=== PATIENT | male | born 1960 | race Caucasian/White ===

== ENCOUNTER 2020-05-10 20:34 | Inpatient (IN) | payer MEDICAID ==
[~2020-05-10] VITALS: Ht 177.8 cm; Wt 78.0 kg
[~2020-05-10 20:34] MED LIST: BENA5TAB26 PO; DIVA-80 PO; METF-960 PO; OLAN5TAB40 PO; PANT-31 PO; PROZ10 PO; SIMV-261 PO; TRIH5TAB4 PO
[2020-05-10 21:50] LABS: BASOPHILS % (AUTO) 0.2 % (0.0-2.0); EOSINOPHILS % (AUTO) 0.1 % (1.0-6.0); HEMOGLOBIN 11.5 g/dL (13.5-17.5); LYMPHOCYTES # (AUTO) 1.6 K/uL (1.0-4.8); MEAN CORPUSCULAR HEMOGLOBIN 29.2 pg (26.0-34.0); MEAN CORPUSCULAR HGB CONC 32.8 G/dL (31.0-37.0); MEAN CORPUSCULAR VOLUME 89 fL (80-100); MONOCYTES # (AUTO) 0.9 K/uL (0.1-1.0); MONOCYTES % (AUTO) 7.1 % (2.0-9.0); NEUTROPHILS # (AUTO) 10.9 K/uL (1.8-7.7); NEUTROPHILS % (AUTO) 80.6 % (40.0-70.0); PLATELET COUNT (AUTO) 153 K/uL (150-450); RED BLOOD CELL COUNT(AUTO) 3.93 MIL/uL (4.50-5.90); RED CELL DISTRIBUTION WIDTH 14.4 % (11.5-14.5)
[2020-05-10 22:02] LABS: ANION GAP 14 mmol/L (8-16); CALCIUM, TOTAL 9.4 mg/dL (8.8-10.5); CARBON DIOXIDE 24 mmol/L (22-29); CHLORIDE 101 mmol/L (98-107); CREATININE 1.78 mg/dL (0.60-1.30); GLOMERULAR FILTR. RATE CALC 33 mL/min (>60); GLUCOSE,RANDOM 108 mg/dL (70-110); POTASSIUM 4.7 mmol/L (3.5-5.1); SODIUM SERUM 139 mmol/L (136-145); UREA NITROGEN, BLOOD 30 mg/dL (7-18)
[2020-05-10 22:08] LABS: ALANINE AMINOTRANSFERASE 22 U/L (12-78); ALBUMIN 4.2 g/dL (3.4-5.0); ALKALINE PHOSPHATASE 45 U/L (46-116); ASPARTATE AMINOTRANSFERASE 18 U/L (15-37); BILIRUBIN,TOTAL 0.5 mg/dL (0.1-1.0); TOTAL PROTEIN, SERUM 7.5 g/dL (6.4-8.2)
[2020-05-10 22:40] LABS: COVID AG,FIA SOURCE NASOPHARYNGEAL
[2020-05-10] MEDS ORDERED: DiphenhydrAMINE HCL 50 MG/ML VIAL IM ONE (23:00)
[2020-05-10] MEDS ORDERED: HALOPERIDOL LACTATE 5 MG/ML VIAL IM ONE (23:00)
[2020-05-10] MEDS ORDERED: LORazepam 2 MG/ML VIAL IM ONE (23:00)
[2020-05-10] MEDS ORDERED: ZOLPIDEM TARTRATE 10 MG TABLET PO PRN (23:15)
[2020-05-11] MEDS: QUEtiapine FUMARATE 100 MG TABLET PO PRN (08:20)
[2020-05-11] MEDS: LORazepam 2 MG TABLET PO PRN (08:20)
[2020-05-11 10:01] VITALS: BP 117/59
[2020-05-11] MEDS: RisperiDONE 2 MG TABLET PO SCH ×2 (10:45→16:51)
[2020-05-11 16:07] LABS: APPEARANCE,URINE CLEAR (CLEAR); BILIRUBIN,URINE NEGATIVE (NEGATIVE); GLUCOSE, URINE (UA) NEGATIVE (NEGATIVE); KETONES,URINE NEGATIVE (NEGATIVE); LEUKOCYTE ESTERASE ,URINE NEGATIVE (NEGATIVE); NITRATE,URINE NEGATIVE (NEGATIVE); OCCULT BLOOD,URINE NEGATIVE (NEGATIVE); PH,URINE 5.5 (5.0-8.0); PROTEIN,URINE NEGATIVE (NEGATIVE); UROBILINOGEN,URINE 0.2 mg/dL (<=1.0)
[2020-05-11 16:11] LABS: AMPHET/METH SCREEN,URINE NEGATIVE (NEGATIVE); BARBITURATE SCREEN, URINE NEGATIVE (NEGATIVE); BENZODIAZEPINES SCREEN,URINE NEGATIVE (NEGATIVE); CANNABINOID SCREEN,URINE NEGATIVE (NEGATIVE); COCAINE SCREEN,URINE NEGATIVE (NEGATIVE); METHADONE SCREEN, URINE NEGATIVE (NEGATIVE); OPIATE SCREEN,URINE NEGATIVE (NEGATIVE); PHENCYCLIDINE SCREEN,URINE NEGATIVE (NEGATIVE)
[2020-05-11 16:51] VITALS: BP 116/76
[2020-05-12] MEDS: LORazepam 2 MG TABLET PO PRN ×2 (02:04→08:26)
[2020-05-12] MEDS: RisperiDONE 2 MG TABLET PO SCH ×2 (08:26→16:51)
[2020-05-12] MEDS: QUEtiapine FUMARATE 100 MG TABLET PO PRN (08:27)
[2020-05-12 08:42] VITALS: BP 116/63
[2020-05-12] MEDS ORDERED: ALBUTEROL SULFATE HFA 90 MCG/PUFF 8 GM INHALER IH PRN (17:45)
[2020-05-12] MEDS ORDERED: NICOTINE 14 MG/24 HOUR PATCH TD PRN (17:45)
[2020-05-12] MEDS ORDERED: CloNIDine HCL 0.1 MG TABLET PO PRN (17:45)
[2020-05-12] MEDS ORDERED: LOPERAMIDE HCL 2 MG CAPSULE PO PRN (17:45)
[2020-05-12] MEDS ORDERED: GuaiFENesin/D-METHORPHAN [SUGAR-FREE] 200-20MG/10 ML SYRUP UDCUP PO PRN (17:45)
[2020-05-12] MEDS ORDERED: IBUPROFEN 400 MG TABLET PO PRN (17:45)
[2020-05-12] MEDS ORDERED: MAGNESIUM HYDROXIDE SUSPENSION 30 ML UDCUP PO PRN (17:45)
[2020-05-12] MEDS ORDERED: DOCUSATE SODIUM 100 MG CAPSULE PO PRN (17:45)
[2020-05-12] MEDS ORDERED: ACETAMINOPHEN 325 MG TABLET PO PRN (17:45)
[2020-05-12] MEDS ORDERED: PETROLATUM,WHITE 28 GM JELLY TP PRN (17:45)
[2020-05-12] MEDS ORDERED: ONDANSETRON HCL 4 MG TABLET PO PRN (17:45)
[2020-05-12] MEDS ORDERED: MAG HYDROX/AL HYDROX/SIMETH ES 30 ML SUSPENSION UDCUP PO PRN (17:45)
[2020-05-13 08:00] VITALS: BP 112/63
[2020-05-13] MEDS: LORazepam 2 MG TABLET PO PRN ×3 (08:17→20:08)
[2020-05-13] MEDS: RisperiDONE 2 MG TABLET PO SCH ×2 (08:17→15:53)
[2020-05-13] MEDS: QUEtiapine FUMARATE 100 MG TABLET PO PRN (08:17)
[2020-05-13 16:42] VITALS: BP 110/65
[2020-05-14] MEDS: RisperiDONE 2 MG TABLET PO SCH ×2 (08:12→16:20)
[2020-05-14] MEDS: LORazepam 2 MG TABLET PO PRN (08:12)
[2020-05-14] MEDS: QUEtiapine FUMARATE 100 MG TABLET PO PRN (08:12)
[2020-05-14 08:17] VITALS: BP 107/59
[2020-05-14 16:36] VITALS: BP 102/61
[2020-05-15 08:00] VITALS: BP 104/62
[2020-05-15] MEDS: RisperiDONE 2 MG TABLET PO SCH ×2 (08:47→15:53)
[2020-05-15] MEDS: LORazepam 2 MG TABLET PO PRN ×2 (08:47→15:53)
[2020-05-15 16:00] VITALS: BP 99/58
[2020-05-15] MEDS: QUEtiapine FUMARATE 100 MG TABLET PO PRN (17:55)
[2020-05-16 05:54] LABS: BASOPHILS % (AUTO) 1.2 % (0.0-2.0); EOSINOPHILS % (AUTO) 0.2 % (1.0-6.0); HEMATOCRIT 32.1 % (41-53); HEMOGLOBIN 11.3 g/dL (13.5-17.5); LYMPHOCYTES # (AUTO) 1.6 K/uL (1.0-4.8); LYMPHOCYTES % (AUTO) 21.3 % (22.0-44.0); MEAN CORPUSCULAR HEMOGLOBIN 29.4 pg (26.0-34.0); MEAN CORPUSCULAR HGB CONC 35.2 G/dL (31.0-37.0); MEAN CORPUSCULAR VOLUME 84 fL (80-100); MONOCYTES # (AUTO) 0.7 K/uL (0.1-1.0); MONOCYTES % (AUTO) 9.6 % (2.0-9.0); NEUTROPHILS # (AUTO) 4.9 K/uL (1.8-7.7); NEUTROPHILS % (AUTO) 67.7 % (40.0-70.0); PLATELET COUNT (AUTO) 235 K/uL (150-450); RED BLOOD CELL COUNT(AUTO) 3.84 MIL/uL (4.50-5.90)
[2020-05-16 06:06] LABS: ANION GAP 8 mmol/L (8-16); CALCIUM, TOTAL 8.4 mg/dL (8.8-10.5); CARBON DIOXIDE 27 mmol/L (22-29); CHLORIDE 102 mmol/L (98-107); CREATININE 0.77 mg/dL (0.60-1.30); GLOMERULAR FILTR. RATE CALC > 60 mL/min (>60); GLUCOSE,RANDOM 206 mg/dL (70-110); POTASSIUM 4.8 mmol/L (3.5-5.1); SODIUM SERUM 137 mmol/L (136-145); UREA NITROGEN, BLOOD 19 mg/dL (7-18)
[2020-05-16 08:00] VITALS: BP 107/60
[2020-05-16] MEDS: RisperiDONE 2 MG TABLET PO SCH (08:52)
[2020-05-16] MEDS: LORazepam 2 MG TABLET PO PRN (08:52)
[2020-05-16 10:53] LABS: COVID AG,FIA SOURCE NASOPHARYNGEAL
[2020-05-16 16:12] VITALS: BP 132/81
[2020-05-16] MEDS: RisperiDONE 3 MG TABLET PO SCH (21:03)
[2020-05-17 00:03] VITALS: BP 126/86
[2020-05-17 08:00] VITALS: BP 115/74
[2020-05-17] MEDS: RisperiDONE 3 MG TABLET PO SCH ×2 (08:14→20:09)
[2020-05-17] MEDS: LORazepam 2 MG TABLET PO PRN ×2 (15:45→20:09)
[2020-05-17 16:22] VITALS: BP 118/65
[2020-05-18 00:05] VITALS: BP 119/77
[2020-05-18 08:34] VITALS: BP 128/75
[2020-05-18] MEDS: RisperiDONE 3 MG TABLET PO SCH ×2 (10:47→20:32)
[2020-05-18] MEDS: LORazepam 2 MG TABLET PO PRN ×2 (15:55→20:32)
[2020-05-18 16:00] VITALS: BP 112/58
[2020-05-19] MEDS: LORazepam 2 MG TABLET PO PRN (08:24)
[2020-05-19] MEDS: RisperiDONE 3 MG TABLET PO SCH ×2 (08:24→20:55)
[2020-05-19 08:49] VITALS: BP 97/61
[2020-05-19 16:08] VITALS: BP 107/71
[2020-05-20 08:00] VITALS: BP 113/59
[2020-05-20] MEDS: RisperiDONE 3 MG TABLET PO SCH ×2 (09:07→20:07)
[2020-05-20] MEDS: LORazepam 2 MG TABLET PO PRN (16:43)
[2020-05-20 16:47] VITALS: BP 118/61
[2020-05-21] MEDS: RisperiDONE 3 MG TABLET PO SCH ×2 (07:57→20:22)
[2020-05-21] MEDS: QUEtiapine FUMARATE 100 MG TABLET PO PRN (10:03)
[2020-05-21] MEDS: LORazepam 2 MG TABLET PO PRN ×2 (10:03→16:11)
[2020-05-21 16:17] VITALS: BP 118/60
[2020-05-22] MEDS: RisperiDONE 3 MG TABLET PO SCH ×2 (09:32→20:27)
[2020-05-22] MEDS: LORazepam 2 MG TABLET PO PRN (15:50)
[2020-05-22 16:49] VITALS: BP 119/67
[2020-05-23 08:00] VITALS: BP 143/71
[2020-05-23] MEDS: RisperiDONE 3 MG TABLET PO SCH ×2 (08:26→20:30)
[2020-05-23] MEDS: LORazepam 2 MG TABLET PO PRN (13:33)
[2020-05-23] MEDS: QUEtiapine FUMARATE 100 MG TABLET PO PRN (13:34)
[2020-05-23 21:50] VITALS: BP 108/62
[2020-05-24 08:00] VITALS: BP 107/51
[2020-05-24] MEDS: LORazepam 2 MG TABLET PO PRN (08:29)
[2020-05-24] MEDS: RisperiDONE 3 MG TABLET PO SCH ×2 (08:29→20:20)
[2020-05-24 12:48] LABS: COVID AG,FIA SOURCE NASOPHARYNGEAL
[2020-05-24 18:40] VITALS: BP 107/61
[2020-05-25 08:00] VITALS: BP 111/57
[2020-05-25] MEDS: RisperiDONE 3 MG TABLET PO SCH ×2 (08:02→20:52)
[2020-05-25] MEDS: LORazepam 2 MG TABLET PO PRN (08:02)
[2020-05-25 16:23] VITALS: BP 118/65
[2020-05-26 06:01] VITALS: BP 115/69
[2020-05-26] MEDS: RisperiDONE 3 MG TABLET PO SCH ×2 (08:39→20:15)
[2020-05-26] MEDS: VALPROIC ACID 250 MG CAPSULE PO SCH (20:15)
[2020-05-27] MEDS: VALPROIC ACID 250 MG CAPSULE PO SCH ×2 (08:11→20:05)
[2020-05-27] MEDS: RisperiDONE 3 MG TABLET PO SCH ×2 (08:11→20:05)
[2020-05-27 08:44] VITALS: BP 138/68
[2020-05-28] MEDS: VALPROIC ACID 250 MG CAPSULE PO SCH ×2 (08:16→20:10)
[2020-05-28] MEDS: RisperiDONE 3 MG TABLET PO SCH ×2 (08:16→20:09)
[2020-05-28 08:45] VITALS: BP 135/74
[2020-05-28] MEDS ORDERED: PALIPERIDONE PALMITATE 234 MG/1.5 ML SYRINGE IM ONE (11:00)
[2020-05-28 16:43] VITALS: BP 116/62
[2020-05-29 05:55] VITALS: BP 108/62
[2020-05-29 08:00] VITALS: BP 122/60
[2020-05-29] MEDS: VALPROIC ACID 250 MG CAPSULE PO SCH ×2 (08:10→21:08)
[2020-05-29] MEDS: RisperiDONE 3 MG TABLET PO SCH ×2 (08:10→21:08)
[2020-05-29 16:34] VITALS: BP 109/60
[2020-05-30] MEDS: VALPROIC ACID 250 MG CAPSULE PO SCH ×2 (08:42→20:23)
[2020-05-30] MEDS: RisperiDONE 3 MG TABLET PO SCH ×2 (08:42→20:23)
[2020-05-30 09:34] VITALS: BP 110/73
[2020-05-30 16:00] VITALS: BP 114/64
[2020-05-31 04:48] VITALS: BP 117/53
[2020-05-31] MEDS: VALPROIC ACID 250 MG CAPSULE PO SCH ×2 (07:59→21:09)
[2020-05-31] MEDS: RisperiDONE 3 MG TABLET PO SCH ×2 (08:01→21:09)
[2020-05-31 08:44] VITALS: BP 115/56
[2020-05-31 12:45] LABS: COVID AG,FIA SOURCE NASOPHARYNGEAL
[2020-05-31 17:00] VITALS: BP 132/67
[2020-06-01 08:00] VITALS: BP 120/73
[2020-06-01] MEDS: VALPROIC ACID 250 MG CAPSULE PO SCH ×2 (08:55→20:29)
[2020-06-01] MEDS: RisperiDONE 3 MG TABLET PO SCH ×2 (08:55→20:29)
[2020-06-01] MEDS ORDERED: PALIPERIDONE PALMITATE 156 MG/ML SYRINGE IM ONE (09:00)
[2020-06-01 16:00] VITALS: BP 123/72
[2020-06-02] MEDS: RisperiDONE 3 MG TABLET PO SCH (08:31)
[2020-06-02] MEDS: VALPROIC ACID 250 MG CAPSULE PO SCH (08:31)
[2020-06-02] MEDS ORDERED: PALI234D IM (10:23)
[2020-06-02] MEDS ORDERED: VALP250C48 PO (10:23)
[2020-06-02] MEDS ORDERED: RISP3TAB44 PO (10:23)
== END 2020-06-02 12:15 | disposition home or self-care (01) | DRG 750 ==
LOC: EMS 20:37 → EDBD 05-11 00:13 → 3EC 05-11 00:13 → 3EI 05-25 15:30
DX: F20.0 Paranoid schizophrenia (principal); D72.829 Elevated white blood cell count, unspecified; D64.9 Anemia, unspecified; Z20.822 Contact with and (suspected) exposure to COVID-19; F94.0 Selective mutism; N17.9 Acute kidney failure, unspecified; Z59.0 Homelessness; Z79.899 Other long term (current) drug therapy
CPT/HCPCS: 80307; 83036; 87426; 93005; 99291; G0480; J1200; J1630; J2060

== ENCOUNTER 2021-12-24 18:30 | Inpatient (IN) | payer MEDICAID, OTHER ==
[~2021-12-24] VITALS: Ht 175.3 cm; Wt 82.2 kg
[~2021-12-24 18:30] MED LIST changes: +FLUO10CA24 PO; +METF-1211 PO; -METF-960 PO; -OLAN5TAB40 PO; +OLAN5TAB94 PO; +PALI234D IM; -PROZ10 PO; +RISP3TAB44 PO; +VALP250C48 PO
[2021-12-24 23:08] LABS: BASOPHILS % (AUTO) 0.5 % (0.0-2.0); EOSINOPHILS % (AUTO) 0.4 % (1.0-6.0); HEMATOCRIT 37.2 % (41-53); HEMOGLOBIN 12.3 g/dL (13.5-17.5); LYMPHOCYTES # (AUTO) 2.5 K/uL (1.0-4.8); LYMPHOCYTES % (AUTO) 25.1 % (22.0-44.0); MEAN CORPUSCULAR HGB CONC 33.2 G/dL (31.0-37.0); MEAN CORPUSCULAR VOLUME 88 fL (80-100); NEUTROPHILS # (AUTO) 6.5 K/uL (1.8-7.7); PLATELET COUNT (AUTO) 355 K/uL (150-450); RED BLOOD CELL COUNT(AUTO) 4.25 MIL/uL (4.50-5.90); RED CELL DISTRIBUTION WIDTH 14.3 % (11.5-14.5)
[2021-12-24 23:17] LABS: ANION GAP 8 mmol/L (8-16); CALCIUM, TOTAL 9.2 mg/dL (8.8-10.5); CARBON DIOXIDE 30 mmol/L (22-29); CHLORIDE 98 mmol/L (98-107); CREATININE 0.89 mg/dL (0.60-1.30); GLUCOSE,RANDOM 173 mg/dL (70-110); SODIUM SERUM 136 mmol/L (136-145); UREA NITROGEN, BLOOD 17 mg/dL (7-18)
[2021-12-24 23:19] LABS: GLOMERULAR FILTR. RATE CALC > 60 mL/min (>60)
[2021-12-24 23:24] LABS: ALANINE AMINOTRANSFERASE 31 U/L (12-78); ALBUMIN 3.9 g/dL (3.4-5.0); ASPARTATE AMINOTRANSFERASE 27 U/L (15-37); BILIRUBIN,TOTAL 0.9 mg/dL (0.1-1.0); TOTAL PROTEIN, SERUM 7.4 g/dL (6.4-8.2)
[2021-12-24 23:35] LABS: ALKALINE PHOSPHATASE 61 U/L (46-116)
[2021-12-24 23:45] LABS: VALPROIC ACID < 3 mcg/mL (50-100)
[2021-12-25] MEDS ORDERED: MIDAZOLAM HCL 5 MG/ML VIAL IM ONE (01:00)
[2021-12-25] MEDS ORDERED: HALOPERIDOL LACTATE 5 MG/ML VIAL IM ONE (01:00)
[2021-12-25] MEDS ORDERED: DiphenhydrAMINE HCL 50 MG/ML VIAL IM ONE (01:00)
[2021-12-25 01:25] LABS: COVID AG,FIA SOURCE NASOPHARYNGEAL
[2021-12-25] MEDS ORDERED: ZOLPIDEM TARTRATE 10 MG TABLET PO PRN (01:45)
[2021-12-25 05:15] VITALS: BP 153/64
[2021-12-25] MEDS ORDERED: INFLUENZA VIRUS VACCINE QVS 2022-23 (6MO+)/PF 60 MCG/0.5 ML SYRINGE IM. ONE (06:45)
[2021-12-25] MEDS ORDERED: LOPERAMIDE HCL 2 MG CAPSULE PO PRN (13:30)
[2021-12-25] MEDS ORDERED: PETROLATUM,WHITE 28 GM JELLY TP PRN (13:30)
[2021-12-25] MEDS ORDERED: GLUCAGON,HUMAN RECOMBINANT 1 MG VIAL IM PRN (13:30)
[2021-12-25] MEDS ORDERED: DOCUSATE SODIUM 100 MG CAPSULE PO PRN (13:30)
[2021-12-25] MEDS ORDERED: IBUPROFEN 600 MG TABLET PO PRN (13:30)
[2021-12-25] MEDS ORDERED: OMEPRAZOLE 20 MG CAPSULE PO PRN (13:30)
[2021-12-25] MEDS ORDERED: ALBUTEROL SULFATE HFA 90 MCG/PUFF 8 GM INHALER IH PRN (13:30)
[2021-12-25] MEDS ORDERED: MAGNESIUM HYDROXIDE SUSPENSION 30 ML UDCUP PO PRN (13:30)
[2021-12-25] MEDS: BENAZEPRIL HCL 5 MG TABLET PO SCH (13:30)
[2021-12-25] MEDS ORDERED: ACETAMINOPHEN 325 MG TABLET PO PRN (13:30)
[2021-12-25] MEDS ORDERED: CloNIDine HCL 0.1 MG TABLET PO PRN (13:30)
[2021-12-25] MEDS ORDERED: MAG HYDROX/AL HYDROX/SIMETH ES 30 ML SUSPENSION UDCUP PO PRN (13:30)
[2021-12-25] MEDS ORDERED: ONDANSETRON HCL 4 MG TABLET PO PRN (13:30)
[2021-12-25] MEDS ORDERED: BACITRACIN 28 GM OINTMENT TP PRN (13:30)
[2021-12-25] MEDS: HALOPERIDOL 5 MG TABLET PO PRN (17:26)
[2021-12-25] MEDS: MetFORMIN HCL 500 MG TABLET PO SCH (17:26)
[2021-12-25] MEDS: INSULIN LISPRO 100 UNITS/ML SQ PRN (17:31)
[2021-12-25 17:36] LABS: GLUCOMETER DEV NAME(LOC) BV3N.; GLUCOSE,POINT OF CARE 230 MG/DL (70-110)
[2021-12-25 22:12] VITALS: BP 156/71
[2021-12-25] MEDS: SIMVASTATIN 20 MG TABLET PO SCH (22:28)
[2021-12-26] MEDS: MetFORMIN HCL 500 MG TABLET PO SCH ×2 (06:30→16:30)
[2021-12-26 08:00] VITALS: BP 138/80
[2021-12-26] MEDS: HALOPERIDOL 5 MG TABLET PO PRN (08:51)
[2021-12-26] MEDS: LORazepam 2 MG TABLET PO PRN (08:51)
[2021-12-26] MEDS: BENAZEPRIL HCL 5 MG TABLET PO SCH (08:51)
[2021-12-26] MEDS ORDERED: HALOPERIDOL LACTATE 5 MG/ML VIAL IM ONE (17:00)
[2021-12-26] MEDS ORDERED: LORazepam 2 MG/ML VIAL IM ONE (17:00)
[2021-12-26] MEDS ORDERED: DiphenhydrAMINE HCL 50 MG/ML VIAL IM ONE (17:00)
[2021-12-26] MEDS: SIMVASTATIN 20 MG TABLET PO SCH (20:53)
[2021-12-27] MEDS: MetFORMIN HCL 500 MG TABLET PO SCH ×2 (06:14→16:30)
[2021-12-27 08:31] VITALS: BP 140/65
[2021-12-27] MEDS: BENAZEPRIL HCL 5 MG TABLET PO SCH (09:14)
[2021-12-27] MEDS: HALOPERIDOL 5 MG TABLET PO PRN (09:14)
[2021-12-27] MEDS: LORazepam 2 MG TABLET PO PRN (09:14)
[2021-12-27] MEDS: SIMVASTATIN 20 MG TABLET PO SCH (20:41)
[2021-12-28] MEDS: MetFORMIN HCL 500 MG TABLET PO SCH ×2 (06:15→16:01)
[2021-12-28 06:38] VITALS: BP 111/76
[2021-12-28 07:49] LABS: CHOL/HDL RATIO 4.3 (4.2-7.3); FREE T4 (FREE THYROXINE) 1.13 ng/dL (0.76-1.46); THYROID STIMULATING HORMONE 2.69 uIU/mL (0.36-3.74)
[2021-12-28] MEDS: BENAZEPRIL HCL 5 MG TABLET PO SCH (08:37)
[2021-12-28] MEDS: HALOPERIDOL 5 MG TABLET PO PRN ×2 (08:37→16:01)
[2021-12-28] MEDS: LORazepam 2 MG TABLET PO PRN ×2 (08:37→16:02)
[2021-12-28 08:52] VITALS: BP 124/63
[2021-12-28 11:56] LABS: GLUCOMETER DEV NAME(LOC) BV3N.; GLUCOSE,POINT OF CARE 228 MG/DL (70-110)
[2021-12-28] MEDS: SIMVASTATIN 20 MG TABLET PO SCH (20:36)
[2021-12-29] MEDS: MetFORMIN HCL 500 MG TABLET PO SCH ×2 (06:30→16:09)
[2021-12-29] MEDS: LORazepam 2 MG TABLET PO PRN ×3 (09:08→20:41)
[2021-12-29] MEDS: BENAZEPRIL HCL 5 MG TABLET PO SCH (09:08)
[2021-12-29] MEDS: HALOPERIDOL 5 MG TABLET PO PRN (09:08)
[2021-12-29 20:40] VITALS: BP 150/74
[2021-12-29] MEDS: OLANZapine 7.5 MG TABLET PO SCH (20:41)
[2021-12-29] MEDS: SIMVASTATIN 20 MG TABLET PO SCH (20:41)
[2021-12-30] MEDS: MetFORMIN HCL 500 MG TABLET PO SCH ×2 (06:30→16:13)
[2021-12-30 06:47] LABS: GLUCOMETER DEV NAME(LOC) BV3N.; GLUCOSE,POINT OF CARE 169 MG/DL (70-110)
[2021-12-30 08:30] VITALS: BP 131/64
[2021-12-30] MEDS: LORazepam 2 MG TABLET PO PRN (08:33)
[2021-12-30] MEDS: HALOPERIDOL 5 MG TABLET PO PRN (08:33)
[2021-12-30] MEDS: BENAZEPRIL HCL 5 MG TABLET PO SCH (08:33)
[2021-12-30] MEDS: OLANZapine 7.5 MG TABLET PO SCH (20:10)
[2021-12-30] MEDS: SIMVASTATIN 20 MG TABLET PO SCH (20:10)
[2021-12-30 23:49] VITALS: BP 124/68
[2021-12-31] MEDS: MetFORMIN HCL 500 MG TABLET PO SCH ×2 (06:37→16:34)
[2021-12-31 06:41] LABS: GLUCOMETER DEV NAME(LOC) BV3N.; GLUCOSE,POINT OF CARE 167 MG/DL (70-110)
[2021-12-31] MEDS: INSULIN LISPRO 100 UNITS/ML SQ PRN ×2 (06:42→11:53)
[2021-12-31 08:19] VITALS: BP 128/72
[2021-12-31] MEDS: BENAZEPRIL HCL 5 MG TABLET PO SCH (08:25)
[2021-12-31] MEDS: LORazepam 2 MG TABLET PO PRN (08:32)
[2021-12-31 11:46] LABS: GLUCOMETER DEV NAME(LOC) BV3N.; GLUCOSE,POINT OF CARE 146 MG/DL (70-110)
[2021-12-31] MEDS: OLANZapine 7.5 MG TABLET PO SCH (20:20)
[2021-12-31] MEDS: SIMVASTATIN 20 MG TABLET PO SCH (20:20)
[2021-12-31 22:43] VITALS: BP 118/76
[2022-01-01] MEDS: MetFORMIN HCL 500 MG TABLET PO SCH ×2 (05:37→16:30)
[2022-01-01] MEDS: INSULIN LISPRO 100 UNITS/ML SQ PRN (05:44)
[2022-01-01 05:51] LABS: GLUCOMETER DEV NAME(LOC) BV3N.; GLUCOSE,POINT OF CARE 165 MG/DL (70-110)
[2022-01-01] MEDS: BENAZEPRIL HCL 5 MG TABLET PO SCH (08:40)
[2022-01-01] MEDS: LORazepam 2 MG TABLET PO PRN (08:40)
[2022-01-01 09:25] VITALS: BP 155/72
[2022-01-01 19:46] VITALS: BP 131/66
[2022-01-01] MEDS: OLANZapine 7.5 MG TABLET PO SCH (21:00)
[2022-01-01] MEDS: SIMVASTATIN 20 MG TABLET PO SCH (21:00)
[2022-01-02] MEDS: MetFORMIN HCL 500 MG TABLET PO SCH ×2 (06:10→17:09)
[2022-01-02] MEDS: LORazepam 2 MG TABLET PO PRN (07:47)
[2022-01-02 08:13] VITALS: BP 128/61
[2022-01-02] MEDS: BENAZEPRIL HCL 5 MG TABLET PO SCH (08:35)
[2022-01-02 16:56] LABS: GLUCOMETER DEV NAME(LOC) BV3N.; GLUCOSE,POINT OF CARE 171 MG/DL (70-110)
[2022-01-02] MEDS: INSULIN LISPRO 100 UNITS/ML SQ PRN (17:16)
[2022-01-02] MEDS: SIMVASTATIN 20 MG TABLET PO SCH (21:19)
[2022-01-02] MEDS: OLANZapine 7.5 MG TABLET PO SCH (21:20)
[2022-01-03 04:51] LABS: GLUCOMETER DEV NAME(LOC) POC.BV
[2022-01-03] MEDS: MetFORMIN HCL 500 MG TABLET PO SCH ×2 (06:30→17:33)
[2022-01-03] MEDS: BENAZEPRIL HCL 5 MG TABLET PO SCH (08:10)
[2022-01-03] MEDS: LORazepam 2 MG TABLET PO PRN ×3 (08:10→22:57)
[2022-01-03] MEDS: INSULIN LISPRO 100 UNITS/ML SQ PRN (17:49)
[2022-01-03 17:57] LABS: GLUCOMETER DEV NAME(LOC) BV3N.; GLUCOSE,POINT OF CARE 239 MG/DL (70-110)
[2022-01-03] MEDS ORDERED: DiphenhydrAMINE HCL 50 MG/ML VIAL ONE (18:45)
[2022-01-03] MEDS ORDERED: HALOPERIDOL LACTATE 5 MG/ML VIAL ONE (18:53)
[2022-01-03] MEDS ORDERED: LORazepam 2 MG/ML VIAL ONE (18:53)
[2022-01-03] MEDS ORDERED: HALOPERIDOL LACTATE 5 MG/ML VIAL IM ONE (19:00)
[2022-01-03] MEDS ORDERED: LORazepam 2 MG/ML VIAL IM ONE (19:00)
[2022-01-03] MEDS ORDERED: DiphenhydrAMINE HCL 50 MG/ML VIAL IM ONE (19:00)
[2022-01-03] MEDS: OLANZapine 10 MG TABLET PO SCH (22:14)
[2022-01-03] MEDS: SIMVASTATIN 20 MG TABLET PO SCH (22:14)
[2022-01-04] MEDS: MetFORMIN HCL 500 MG TABLET PO SCH ×2 (06:30→16:24)
[2022-01-04] MEDS: BENAZEPRIL HCL 5 MG TABLET PO SCH (08:23)
[2022-01-04 08:48] VITALS: BP 144/78
[2022-01-04] MEDS: SIMVASTATIN 20 MG TABLET PO SCH (20:38)
[2022-01-04] MEDS: OLANZapine 10 MG TABLET PO SCH (20:38)
[2022-01-04 20:56] VITALS: BP 118/76
[2022-01-05] MEDS: MetFORMIN HCL 500 MG TABLET PO SCH ×2 (06:27→16:17)
[2022-01-05] MEDS: BENAZEPRIL HCL 5 MG TABLET PO SCH (08:37)
[2022-01-05 09:03] VITALS: BP 147/77
[2022-01-05] MEDS ORDERED: LORazepam 2 MG/ML VIAL IM ONE (18:15)
[2022-01-05] MEDS ORDERED: DiphenhydrAMINE HCL 50 MG/ML VIAL IM ONE (18:15)
[2022-01-05] MEDS ORDERED: HALOPERIDOL LACTATE 5 MG/ML VIAL IM ONE (18:15)
[2022-01-05] MEDS: OLANZapine 10 MG TABLET PO SCH (20:09)
[2022-01-05] MEDS: SIMVASTATIN 20 MG TABLET PO SCH (20:10)
[2022-01-05 20:28] VITALS: BP 128/67
[2022-01-06] MEDS: MetFORMIN HCL 500 MG TABLET PO SCH ×2 (06:30→17:20)
[2022-01-06 09:05] VITALS: BP 129/69
[2022-01-06] MEDS: LITHIUM CARBONATE 300 MG CAPSULE PO SCH ×2 (09:06→17:20)
[2022-01-06] MEDS: BENAZEPRIL HCL 5 MG TABLET PO SCH (09:06)
[2022-01-06] MEDS: DIVALPROEX SODIUM 500 MG DR TABLET PO SCH ×2 (09:06→17:20)
[2022-01-06 17:36] LABS: GLUCOMETER DEV NAME(LOC) BV3N.; GLUCOSE,POINT OF CARE 129 MG/DL (70-110)
[2022-01-06 20:29] VITALS: BP 118/70
[2022-01-06] MEDS: OLANZapine 10 MG TABLET PO SCH (20:47)
[2022-01-06] MEDS: SIMVASTATIN 20 MG TABLET PO SCH (20:47)
[2022-01-07] MEDS: MetFORMIN HCL 500 MG TABLET PO SCH ×2 (05:55→16:28)
[2022-01-07] MEDS: LITHIUM CARBONATE 300 MG CAPSULE PO SCH ×2 (08:27→16:28)
[2022-01-07] MEDS: BENAZEPRIL HCL 5 MG TABLET PO SCH (08:27)
[2022-01-07] MEDS: DIVALPROEX SODIUM 500 MG DR TABLET PO SCH ×2 (08:27→16:28)
[2022-01-07] MEDS: SIMVASTATIN 20 MG TABLET PO SCH (20:04)
[2022-01-07] MEDS: OLANZapine 10 MG TABLET PO SCH (20:04)
[2022-01-07 20:31] VITALS: BP 136/65
[2022-01-08] MEDS: MetFORMIN HCL 500 MG TABLET PO SCH ×2 (06:30→16:42)
[2022-01-08] MEDS: LITHIUM CARBONATE 300 MG CAPSULE PO SCH ×2 (08:29→16:42)
[2022-01-08] MEDS: BENAZEPRIL HCL 5 MG TABLET PO SCH (08:30)
[2022-01-08] MEDS: DIVALPROEX SODIUM 500 MG DR TABLET PO SCH ×2 (08:30→16:42)
[2022-01-08 08:41] VITALS: BP 145/75
[2022-01-08] MEDS: OLANZapine 10 MG TABLET PO SCH (20:31)
[2022-01-08] MEDS: SIMVASTATIN 20 MG TABLET PO SCH (20:31)
[2022-01-08 21:02] VITALS: BP 110/61
[2022-01-09] MEDS: MetFORMIN HCL 500 MG TABLET PO SCH ×2 (06:07→16:14)
[2022-01-09 08:28] VITALS: BP 112/65
[2022-01-09] MEDS: BENAZEPRIL HCL 5 MG TABLET PO SCH (08:28)
[2022-01-09] MEDS: DIVALPROEX SODIUM 500 MG DR TABLET PO SCH ×2 (08:28→16:14)
[2022-01-09] MEDS: LITHIUM CARBONATE 300 MG CAPSULE PO SCH ×2 (08:28→16:14)
[2022-01-09 20:17] VITALS: BP 138/64
[2022-01-09] MEDS: OLANZapine 10 MG TABLET PO SCH (21:05)
[2022-01-09] MEDS: SIMVASTATIN 20 MG TABLET PO SCH (21:05)
[2022-01-10] MEDS: MetFORMIN HCL 500 MG TABLET PO SCH ×2 (06:30→16:33)
[2022-01-10] MEDS: LITHIUM CARBONATE 300 MG CAPSULE PO SCH ×2 (08:19→16:33)
[2022-01-10] MEDS: DIVALPROEX SODIUM 500 MG DR TABLET PO SCH ×2 (08:19→16:33)
[2022-01-10] MEDS: BENAZEPRIL HCL 5 MG TABLET PO SCH (08:19)
[2022-01-10 08:20] VITALS: BP 133/78
[2022-01-10 10:06] LABS: GLUCOMETER DEV NAME(LOC) POC.BV
[2022-01-10 20:00] VITALS: BP 108/68
[2022-01-10] MEDS: SIMVASTATIN 20 MG TABLET PO SCH (20:41)
[2022-01-10] MEDS: OLANZapine 10 MG TABLET PO SCH (20:41)
[2022-01-10 23:21] LABS: GLUCOMETER DEV NAME(LOC) POC.BV
[2022-01-11] MEDS: MetFORMIN HCL 500 MG TABLET PO SCH ×2 (06:34→17:02)
[2022-01-11] MEDS: INSULIN LISPRO 100 UNITS/ML SQ PRN (06:34)
[2022-01-11 06:36] LABS: GLUCOMETER DEV NAME(LOC) BV3N.; GLUCOSE,POINT OF CARE 273 MG/DL (70-110)
[2022-01-11 08:27] VITALS: BP 154/74
[2022-01-11] MEDS: LITHIUM CARBONATE 300 MG CAPSULE PO SCH ×2 (09:00→17:02)
[2022-01-11] MEDS: BENAZEPRIL HCL 5 MG TABLET PO SCH (09:11)
[2022-01-11] MEDS: DIVALPROEX SODIUM 500 MG DR TABLET PO SCH ×2 (09:11→17:02)
[2022-01-11] MEDS: SIMVASTATIN 20 MG TABLET PO SCH (20:18)
[2022-01-11] MEDS: OLANZapine 10 MG TABLET PO SCH (20:18)
[2022-01-11 20:24] VITALS: BP 140/71
[2022-01-12] MEDS: MetFORMIN HCL 500 MG TABLET PO SCH ×2 (06:30→16:49)
[2022-01-12 08:31] VITALS: BP 140/71
[2022-01-12] MEDS: BENAZEPRIL HCL 5 MG TABLET PO SCH (08:52)
[2022-01-12] MEDS: DIVALPROEX SODIUM 500 MG DR TABLET PO SCH ×2 (08:52→16:50)
[2022-01-12] MEDS: LITHIUM CARBONATE 300 MG CAPSULE PO SCH ×2 (08:52→16:50)
[2022-01-12] MEDS: OLANZapine 10 MG TABLET PO SCH (20:06)
[2022-01-12] MEDS: SIMVASTATIN 20 MG TABLET PO SCH (20:06)
[2022-01-12 20:21] VITALS: BP 122/61
[2022-01-13] MEDS: MetFORMIN HCL 500 MG TABLET PO SCH ×2 (06:30→17:08)
[2022-01-13 08:35] VITALS: BP 144/65
[2022-01-13] MEDS: LITHIUM CARBONATE 300 MG CAPSULE PO SCH ×2 (08:45→17:08)
[2022-01-13] MEDS: BENAZEPRIL HCL 5 MG TABLET PO SCH (08:45)
[2022-01-13] MEDS: DIVALPROEX SODIUM 500 MG DR TABLET PO SCH ×2 (08:45→17:09)
[2022-01-13 20:00] VITALS: BP 110/66
[2022-01-13] MEDS: OLANZapine 10 MG TABLET PO SCH (20:17)
[2022-01-13] MEDS: SIMVASTATIN 20 MG TABLET PO SCH (20:18)
[2022-01-13] MEDS: MELATONIN 5 MG TABLET PO PRN (20:18)
[2022-01-14] MEDS: MetFORMIN HCL 500 MG TABLET PO SCH ×2 (06:59→16:01)
[2022-01-14] MEDS: INSULIN LISPRO 100 UNITS/ML SQ PRN (07:05)
[2022-01-14 07:06] LABS: GLUCOMETER DEV NAME(LOC) BV3N.; GLUCOSE,POINT OF CARE 219 MG/DL (70-110)
[2022-01-14 08:09] VITALS: BP 158/79
[2022-01-14] MEDS: LITHIUM CARBONATE 300 MG CAPSULE PO SCH ×2 (08:19→16:01)
[2022-01-14] MEDS: DIVALPROEX SODIUM 500 MG DR TABLET PO SCH ×2 (08:19→16:01)
[2022-01-14] MEDS: BENAZEPRIL HCL 5 MG TABLET PO SCH (08:19)
[2022-01-14] MEDS: BENZOCAINE/MENTHOL LOZENGE PO PRN ×2 (10:12→18:05)
[2022-01-14 20:05] VITALS: BP 123/67
[2022-01-14] MEDS: OLANZapine 10 MG TABLET PO SCH (20:10)
[2022-01-14] MEDS: SIMVASTATIN 20 MG TABLET PO SCH (20:10)
[2022-01-15] MEDS: BENZOCAINE/MENTHOL LOZENGE PO PRN (05:30)
[2022-01-15] MEDS: MetFORMIN HCL 500 MG TABLET PO SCH ×2 (06:30→17:05)
[2022-01-15 08:02] VITALS: BP 143/74
[2022-01-15] MEDS: BENAZEPRIL HCL 5 MG TABLET PO SCH (08:14)
[2022-01-15] MEDS: LITHIUM CARBONATE 300 MG CAPSULE PO SCH ×2 (08:14→17:05)
[2022-01-15] MEDS: DIVALPROEX SODIUM 500 MG DR TABLET PO SCH ×2 (08:14→17:05)
[2022-01-15] MEDS: OLANZapine 10 MG TABLET PO SCH (20:29)
[2022-01-15] MEDS: SIMVASTATIN 20 MG TABLET PO SCH (20:29)
[2022-01-15] MEDS: MELATONIN 5 MG TABLET PO PRN (20:29)
[2022-01-16] MEDS: MetFORMIN HCL 500 MG TABLET PO SCH ×2 (06:00→16:01)
[2022-01-16] MEDS: DIVALPROEX SODIUM 500 MG DR TABLET PO SCH ×2 (08:00→16:01)
[2022-01-16] MEDS: LITHIUM CARBONATE 300 MG CAPSULE PO SCH ×2 (08:00→16:02)
[2022-01-16] MEDS: BENAZEPRIL HCL 5 MG TABLET PO SCH (08:00)
[2022-01-16] MEDS: BENZOCAINE/MENTHOL LOZENGE PO PRN ×2 (08:01→13:08)
[2022-01-16 08:03] VITALS: BP 152/81
[2022-01-16 11:41] LABS: GLUCOMETER DEV NAME(LOC) POC.BV
[2022-01-16 20:20] VITALS: BP 142/74
[2022-01-16] MEDS: SIMVASTATIN 20 MG TABLET PO SCH (20:34)
[2022-01-16] MEDS: OLANZapine 10 MG TABLET PO SCH (20:34)
[2022-01-17] MEDS: MetFORMIN HCL 500 MG TABLET PO SCH ×2 (06:20→16:34)
[2022-01-17] MEDS: LITHIUM CARBONATE 300 MG CAPSULE PO SCH ×2 (08:05→16:34)
[2022-01-17] MEDS: DIVALPROEX SODIUM 500 MG DR TABLET PO SCH ×2 (08:05→16:34)
[2022-01-17] MEDS: BENAZEPRIL HCL 5 MG TABLET PO SCH (08:05)
[2022-01-17 08:08] VITALS: BP 135/63
[2022-01-17] MEDS: BENZOCAINE/MENTHOL LOZENGE PO PRN (08:54)
[2022-01-17] MEDS: SIMVASTATIN 20 MG TABLET PO SCH (20:09)
[2022-01-17] MEDS: OLANZapine 10 MG TABLET PO SCH (20:09)
[2022-01-17 22:02] VITALS: BP 139/68
[2022-01-18] MEDS: MetFORMIN HCL 500 MG TABLET PO SCH ×2 (06:30→17:04)
[2022-01-18 08:04] VITALS: BP 158/77
[2022-01-18] MEDS: DIVALPROEX SODIUM 500 MG DR TABLET PO SCH ×2 (08:22→17:06)
[2022-01-18] MEDS: BENAZEPRIL HCL 5 MG TABLET PO SCH (08:23)
[2022-01-18] MEDS: LITHIUM CARBONATE 300 MG CAPSULE PO SCH ×2 (08:23→17:04)
[2022-01-18 10:30] VITALS: BP 140/78
[2022-01-18 20:14] VITALS: BP 130/68
[2022-01-18] MEDS: OLANZapine 10 MG TABLET PO SCH (20:22)
[2022-01-18] MEDS: MELATONIN 5 MG TABLET PO PRN (20:22)
[2022-01-18] MEDS: SIMVASTATIN 20 MG TABLET PO SCH (20:22)
[2022-01-19] MEDS: MetFORMIN HCL 500 MG TABLET PO SCH ×2 (06:30→17:28)
[2022-01-19 07:47] LABS: LITHIUM 0.46 mmol/L (0.60-1.20)
[2022-01-19] MEDS: DIVALPROEX SODIUM 500 MG DR TABLET PO SCH ×2 (08:15→17:28)
[2022-01-19] MEDS: BENAZEPRIL HCL 5 MG TABLET PO SCH (08:15)
[2022-01-19] MEDS: LITHIUM CARBONATE 300 MG CAPSULE PO SCH ×2 (08:15→17:28)
[2022-01-19 08:16] VITALS: BP 146/68
[2022-01-19] MEDS: BENZOCAINE/MENTHOL LOZENGE PO PRN (09:02)
[2022-01-19 20:07] VITALS: BP 116/69
[2022-01-19] MEDS: SIMVASTATIN 20 MG TABLET PO SCH (20:34)
[2022-01-19] MEDS: OLANZapine 10 MG TABLET PO SCH (20:34)
[2022-01-20] MEDS: MetFORMIN HCL 500 MG TABLET PO SCH ×2 (06:30→17:10)
[2022-01-20] MEDS: DIVALPROEX SODIUM 500 MG DR TABLET PO SCH ×2 (08:09→17:10)
[2022-01-20] MEDS: BENAZEPRIL HCL 5 MG TABLET PO SCH (08:09)
[2022-01-20] MEDS: LITHIUM CARBONATE 300 MG CAPSULE PO SCH ×2 (08:09→17:11)
[2022-01-20 08:13] VITALS: BP 150/78
[2022-01-20] MEDS ORDERED: LITH300C3 PO (13:28)
[2022-01-20] MEDS ORDERED: DIVA-112 PO (13:28)
[2022-01-20] MEDS ORDERED: OLAN10 PO (13:28)
== END 2022-01-20 17:45 | disposition home or self-care (01) | DRG 750 ==
LOC: EMS 18:30 → B3A 12-25 02:29 → UNDOADMIN 12-25 02:29 → B3A 01-13 08:15
PROVIDERS: ADMIT Psychiatry & Neurology Psychiatry; ATTEND Psychiatry & Neurology Psychiatry
DX: F20.9 Schizophrenia, unspecified (principal); E78.5 Hyperlipidemia, unspecified; F17.200 Nicotine dependence, unspecified, uncomplicated; F41.9 Anxiety disorder, unspecified; G47.00 Insomnia, unspecified; J44.9 Chronic obstructive pulmonary disease, unspecified; I10 Essential (primary) hypertension; K59.00 Constipation, unspecified; K21.9 Gastro-esophageal reflux disease without esophagitis; N40.0 Benign prostatic hyperplasia without lower urinary tract symptoms; F51.05 Insomnia due to other mental disorder; Z53.20 Procedure and treatment not carried out because of patient's decision for unspecified reasons; Z20.822 Contact with and (suspected) exposure to COVID-19; Z79.899 Other long term (current) drug therapy
CPT/HCPCS: 80053; 80061; 80164; 80178; 82962; 83036; 84439; 84443; 85025; 87081; 99285; G0480; J1200; J1630; J2060; J2250; Q9967